=== PATIENT | female | born 1935 | race Caucasian/White ===

== ENCOUNTER 2016-04-04 20:29 | Inpatient (IN) | payer OTHER ==
[~2016-04-04] VITALS: Ht 165.1 cm; Wt 55.9 kg
[~2016-04-04 20:29] MED LIST: ADVAIR 250-501 EACH IH; ADVAIR 250/501 DISK IH; ALPRAZOLAM0.25 M1 PO; ANALGESIC325 MG PO; AZITHROMYCIN250 MG1 PO; Advair HFA 115/21 IH; Betapace,Sorine PO; CARDIZEM90 M1 G-TUBE; CARDIZEM90 M1 PO; CARDIZEM90 MG PO; Ceftin PO; ENDOCET 5-3251 EACH PO; FLECAINIDE ACE100 M1 PO; HABITROL,NICODER7 MG TD; HALCION0.25 MG PO; Humibid LA,Mucinex PO; KEFLEX500 MG PO; LEVOTHYROXINE100 MCG PO; LEVOXYL100 MCG PO; LIPITOR40 MG PO; LISINOPRIL10 MG PO; LITE COAT ASPI325 M1 PO; LORTAB 10-3251 EACH PO; Lasix PO; Levaquin PO; Levothroid,Synthroid PO; Lipitor PO; NITROSTAT,NITR0.4 M1 SL; Nitrostat,NitroQuick SL; PERCOCET 5/31 TABLET PO; PLAVIX75 MG PO; PREDNISONE20 MG PO; PREDNISONE50 MG PO; PREMARIN0.3 MG PO; PROVENTIL,2.5 MG/0.5 IH; Plavix PO; Proventil,Ventolin H IH; SOTALOL80 MG PO; TIZANIDINE HCL4 MG PO; VENTOLIN HFA18 GM IH; Vibramycin, Doryx PO; Vitamin D PO; XANAX0.5 MG PO; Xanax PO; ZESTRIL,PRINIVI10 M1 PO; Zestril,Prinivil PO; Zocor PO; predniSONE PO
[2016-04-04 21:18] LABS: CHLORIDE 105 mEq/L (99-109); POTASSIUM 4.5 mEq/L (3.7-5.4); SODIUM 137 mEq/L (136-147)
[2016-04-04 21:21] LABS: GLUCOSE 103 mg/dL (70-99)
[2016-04-04 21:22] LABS: ANION GAP 9 MEQ/L (2-14); INTER. NORMALIZED RATIO 1.1; PROTHROMBIN TIME 11.2 (9.2-11.2); PTT 34.5 (25-32); TOTAL BILIRUBIN 0.7 mg/dL (0.0-1.0)
[2016-04-04 21:24] LABS: ALKALINE PHOSPHATASE 70 IU/L (3-129); GFR ESTIMATE (CALCULATED) > 59 mL/min/
[2016-04-04 21:25] LABS: UREA NITROGEN (BUN) 22 mg/dL (9-23)
[2016-04-04 21:31] LABS: TROP-I INTERPRETATION NEGATIVE; TROPONIN-I < 0.01 ng/mL (0.0-0.30)
[2016-04-04 21:44] LABS: HEMATOCRIT 41.6 % (36.0-46.0); MCH 29.3 PG (29.0-34.0); MCHC 32.5 G/DL (30.0-36.0); MCV 90.2 FL (83-99); MEAN PLAT.VOLUME 10.4 uM^3 (9.5-12.4); PLATELET COUNT 242 K/uL (156-360); RBC DIS.WIDTH-CV 13.7 % (11.8-14.6); RBC DIS.WIDTH-SD 44.2 % (39-53); RED BLOOD COUNT 4.61 M/uL (3.80-5.20); WHITE BLOOD COUNT 12.7 K/uL (4.1-10.2)
[2016-04-04 21:47] LABS: BASOPHIL COUNT 0.1 K/uL (0-0.1); EOSINOPHIL (%) 2.4 % (0-5); EOSINOPHIL COUNT 0.3 K/uL (0-0.3); IMMATURE GRANULOCYTE (%) 0.3 % (0.0-0.7); IMMATURE GRANULOCYTE COUNT 0.4 K/uL; LYMPHOCYTE COUNT 2.4 K/uL (1.0-2.8); MONOCYTE (%) 12.9 % (3-12); MONOCYTE COUNT 1.6 K/uL (0-0.8); NEUTROPHIL (%) 64.8 % (45-76); NEUTROPHIL COUNT 8.2 K/uL (1.8-6.4)
[2016-04-04] MEDS ORDERED: CYANOCOBALAM1000 MCG PO (21:52)
[2016-04-04] MEDS ORDERED: VITAMIN D31000 UNIT PO (21:52)
[2016-04-04] MEDS ORDERED: FOLIC ACID1 MG PO (21:52)
[2016-04-04] MEDS ORDERED: VENLAFAXINE H37.5 M3 PO (21:52)
[2016-04-05] VITALS (8 sets, daily range): BP systolic 97–148; BP diastolic 58–70
[2016-04-05 01:25] LABS: ADD MIUA? YES; BILIRUBIN NEGATIVE; BLOOD TRACE; COLOR YELLOW ((YELLOW)); GLUCOSE (STRIP) NEGATIVE; KETONES NEGATIVE; LEUKOCYTES NEGATIVE; NITRITE NEGATIVE; PH, URINE 5.5 (5-8); PROTEIN (STRIP) NEGATIVE; SPECIFIC GRAVITY 1.013 (1.000-1.030); UROBILINOGEN 0.2 MG/DL (0.2-1.0)
[2016-04-05 01:36] LABS: PREALBUMIN 7.6 mg/dL (10-40)
[2016-04-05 01:59] LABS: EPITHELIAL CELLS RARE; MUCUS NONE SEEN; RED BLOOD CELLS 0-5 /HPF (0-5); WHITE BLOOD CELLS NONE SEEN /HPF (0-5)
[2016-04-05 02:00] LABS: BACTERIA RARE; CASTS NONE SEEN /LPF; CRYSTALS NONE SEEN; UCUL ADDED? NO
[2016-04-05 04:52] LABS: EOSINOPHIL (%) 0.2 % (0-5); HEMATOCRIT 40.9 % (36.0-46.0); IMMATURE GRANULOCYTE (%) 0.2 % (0.0-0.7); IMMATURE GRANULOCYTE COUNT 0.2 K/uL; LYMPHOCYTE COUNT 0.7 K/uL (1.0-2.8); MCH 29.4 PG (29.0-34.0); MCHC 32.8 G/DL (30.0-36.0); MCV 89.7 FL (83-99); MEAN PLAT.VOLUME 10.3 uM^3 (9.5-12.4); MONOCYTE (%) 2.9 % (3-12); MONOCYTE COUNT 0.3 K/uL (0-0.8); NEUTROPHIL (%) 89.4 % (45-76); NEUTROPHIL COUNT 8.4 K/uL (1.8-6.4); PLATELET COUNT 228 K/uL (156-360); RBC DIS.WIDTH-CV 13.5 % (11.8-14.6); RBC DIS.WIDTH-SD 43.4 % (39-53); RED BLOOD COUNT 4.56 M/uL (3.80-5.20); WHITE BLOOD COUNT 9.4 K/uL (4.1-10.2)
[2016-04-05 04:55] LABS: CHLORIDE 107 mEq/L (99-109); SODIUM 139 mEq/L (136-147)
[2016-04-05 04:56] LABS: GLUCOSE 138 mg/dL (70-99)
[2016-04-05 04:58] LABS: ANION GAP 10 MEQ/L (2-14)
[2016-04-05 04:59] LABS: INTER. NORMALIZED RATIO 1.1; PROTHROMBIN TIME 11.2 (9.2-11.2)
[2016-04-05 05:00] LABS: GFR ESTIMATE (CALCULATED) > 59 mL/min/
[2016-04-05 05:01] LABS: UREA NITROGEN (BUN) 20 mg/dL (9-23)
[2016-04-05 05:03] LABS: PTT 73.7 (25-32)
[2016-04-05 05:04] LABS: TROP-I INTERPRETATION NEGATIVE; TROPONIN-I 0.24 ng/mL (0.0-0.30)
[2016-04-05 10:36] LABS: TROP-I INTERPRETATION NEGATIVE; TROPONIN-I 0.12 ng/mL (0.0-0.30)
[2016-04-06 04:20] VITALS: BP 106/66
[2016-04-06 07:02] VITALS: BP 125/59
[2016-04-06] MEDS ORDERED: DOXYCYCLINE HY100 M3 PO (10:54)
[2016-04-06 11:43] VITALS: BP 148/69
[2016-04-06] MEDS ORDERED: CARDIZEM CD,CA120 MG PO (12:02)
== END 2016-04-06 13:27 | disposition home health service (06) | DRG 308 ==
LOC: EME 20:29 → EDOF 23:00 → 4EAST 23:00
PROVIDERS: Emergency Medicine; Internal Medicine
DX: I48.91 Unspecified atrial fibrillation (principal); J44.0 Chronic obstructive pulmonary disease with (acute) lower respiratory infection; J18.9 Pneumonia, unspecified organism; J44.1 Chronic obstructive pulmonary disease with (acute) exacerbation; I95.9 Hypotension, unspecified; R63.4 Abnormal weight loss; E86.0 Dehydration; I25.10 Atherosclerotic heart disease of native coronary artery without angina pectoris; Z95.5 Presence of coronary angioplasty implant and graft; I49.5 Sick sinus syndrome; Z95.0 Presence of cardiac pacemaker; F43.21 Adjustment disorder with depressed mood; F41.9 Anxiety disorder, unspecified; I12.9 Hypertensive chronic kidney disease with stage 1 through stage 4 chronic kidney disease, or unspecified chronic kidney disease; N18.9 Chronic kidney disease, unspecified; E78.5 Hyperlipidemia, unspecified; E03.9 Hypothyroidism, unspecified; M48.06 Spinal stenosis, lumbar region; G95.19 Other vascular myelopathies; F17.210 Nicotine dependence, cigarettes, uncomplicated; Z71.6 Tobacco abuse counseling; Z98.890 Other specified postprocedural states; Z79.02 Long term (current) use of antithrombotics/antiplatelets; Z79.82 Long term (current) use of aspirin
CPT/HCPCS: 71010; 80048; 80053; 81003; 82272; 84134; 84439; 84443; 84484; 85025; 85027; 85610; 85730; 93005; 93306; 94640; 94640 76; 94760; 94799; 99202; 99281; 99285; J0153; J0456; J0696; J1160; J2920; J7030; J7050

== ENCOUNTER 2016-12-26 09:33 | Day surgery (SDC) | payer OTHER ==
[~2016-12-26] VITALS: Ht 165.1 cm; Wt 53.5 kg
[~2016-12-26 09:33] MED LIST changes: +CARDIZEM CD,CA120 MG PO; +CYANOCOBALAM1000 MCG PO; +DOXYCYCLINE HY100 M3 PO; +FOLIC ACID1 MG PO; +VENLAFAXINE H37.5 M3 PO; +VITAMIN D31000 UNIT PO
== END 2016-12-26 11:05 | disposition home or self-care (01) ==
LOC: PAIN 09:33 → SDC 10:00 → PAIN 11:05
DX: M47.26 Other spondylosis with radiculopathy, lumbar region (principal); M48.061 Spinal stenosis, lumbar region without neurogenic claudication; M51.16 Intervertebral disc disorders with radiculopathy, lumbar region; F17.200 Nicotine dependence, unspecified, uncomplicated; F41.9 Anxiety disorder, unspecified; I71.4 Abdominal aortic aneurysm, without rupture; I35.8 Other nonrheumatic aortic valve disorders; I48.91 Unspecified atrial fibrillation; J44.9 Chronic obstructive pulmonary disease, unspecified; I25.10 Atherosclerotic heart disease of native coronary artery without angina pectoris; E53.8 Deficiency of other specified B group vitamins; E06.3 Autoimmune thyroiditis; E78.5 Hyperlipidemia, unspecified; I10 Essential (primary) hypertension; J45.20 Mild intermittent asthma, uncomplicated; R73.03 Prediabetes; I49.5 Sick sinus syndrome; E55.9 Vitamin D deficiency, unspecified; Z79.82 Long term (current) use of aspirin; Z95.0 Presence of cardiac pacemaker; Z95.5 Presence of coronary angioplasty implant and graft; Z88.0 Allergy status to penicillin; Z88.1 Allergy status to other antibiotic agents; Z88.8 Allergy status to other drugs, medicaments and biological substances
CPT/HCPCS: J1030; J3010; S0020

== ENCOUNTER 2017-01-09 09:34 | Day surgery (SDC) | payer OTHER ==
[~2017-01-09] VITALS: Ht 165.1 cm; Wt 53.5 kg
== END 2017-01-09 11:38 | disposition home or self-care (01) ==
LOC: PAIN 09:34 → SDC 10:15 → PAIN 11:38
DX: M47.26 Other spondylosis with radiculopathy, lumbar region (principal); M51.16 Intervertebral disc disorders with radiculopathy, lumbar region; M54.5 Low back pain; M70.61 Trochanteric bursitis, right hip; M48.061 Spinal stenosis, lumbar region without neurogenic claudication; I25.10 Atherosclerotic heart disease of native coronary artery without angina pectoris; I10 Essential (primary) hypertension; E03.9 Hypothyroidism, unspecified; I48.91 Unspecified atrial fibrillation; I49.5 Sick sinus syndrome; J44.9 Chronic obstructive pulmonary disease, unspecified; R73.03 Prediabetes; F41.9 Anxiety disorder, unspecified; Z95.0 Presence of cardiac pacemaker; Z95.5 Presence of coronary angioplasty implant and graft; Z79.02 Long term (current) use of antithrombotics/antiplatelets; Z88.0 Allergy status to penicillin; Z79.82 Long term (current) use of aspirin; Z79.891 Long term (current) use of opiate analgesic; F17.200 Nicotine dependence, unspecified, uncomplicated
CPT/HCPCS: J1030; J3010; S0020

== ENCOUNTER → 2017-03-03 | Outpatient (CLI) | payer OTHER | LOC: RAD 13:26 | DX: R13.12 Dysphagia, oropharyngeal phase (principal); S02.609D Fracture of mandible, unspecified, subsequent encounter for fracture with routine healing | CPT/HCPCS: 74230; 92611 GN; G8996 GN CJ; G8997 GN CJ; G8998 GN CJ ==

== ENCOUNTER 2017-04-14 08:29 | Observation (INO) | payer OTHER ==
[~2017-04-14] VITALS: Ht 165.1 cm; Wt 51.1 kg
[~2017-04-14 08:29] MED LIST changes: +ASPIR-LOW81 MG PO; -LEVOTHYROXINE100 MCG PO; +LEVOTHYROXINE150 MCG PO; -LITE COAT ASPI325 M1 PO; -VENLAFAXINE H37.5 M3 PO; +VENLAFAXINE HCL75 MG PO; +XANAX0.25 MG PO; -XANAX0.5 MG PO
[2017-04-14 09:38] LABS: BASOPHIL (%) 0.7 % (0-1); BASOPHIL COUNT 0.1 K/uL (0-0.1); EOSINOPHIL (%) 6.3 % (0-5); EOSINOPHIL COUNT 0.6 K/uL (0-0.3); HEMATOCRIT 42.4 % (36.0-46.0); HEMOGLOBIN 13.4 G/DL (11.9-15.5); IMMATURE GRANULOCYTE (%) 0.3 % (0.0-0.7); LYMPHOCYTE (%) 16.8 % (15-42); LYMPHOCYTE COUNT 1.6 K/uL (1.0-2.8); MCH 28.5 PG (29.0-34.0); MCHC 31.6 G/DL (30.0-36.0); MONOCYTE (%) 7.8 % (3-12); MONOCYTE COUNT 0.8 K/uL (0-0.8); NEUTROPHIL (%) 68.1 % (45-76); NEUTROPHIL COUNT 6.5 K/uL (1.8-6.4); PLATELET COUNT 244 K/uL (156-360); RBC DIS.WIDTH-CV 13.8 % (11.8-14.6); RBC DIS.WIDTH-SD 45.6 % (39-53); RED BLOOD COUNT 4.71 M/uL (3.80-5.20); WHITE BLOOD COUNT 9.6 K/uL (4.1-10.2)
[2017-04-14 09:48] LABS: ALBUMIN 3.4 g/dL (3.2-4.8); CHLORIDE 104 mEq/L (99-109); POTASSIUM 3.8 mEq/L (3.7-5.4); SODIUM 141 mEq/L (136-147)
[2017-04-14 09:51] LABS: GLUCOSE 96 mg/dL (70-99); TOTAL PROTEIN 5.9 g/dL (6.4-8.3)
[2017-04-14 09:53] LABS: TOTAL BILIRUBIN 0.4 mg/dL (0.0-1.0)
[2017-04-14 09:54] LABS: ALKALINE PHOSPHATASE 86 IU/L (3-129); CREATININE 0.8 mg/dL (0.6-1.3); GFR ESTIMATE (CALCULATED) > 59 mL/min/
[2017-04-14 09:55] LABS: UREA NITROGEN (BUN) 16 mg/dL (9-23)
[2017-04-14 09:56] LABS: AST (GOT) 24 IU/L (2-34)
[2017-04-14 09:57] LABS: ALT (GPT) 13 IU/L (3-49)
[2017-04-14 09:59] LABS: TROP-I INTERPRETATION NEGATIVE; TROPONIN-I < 0.01 ng/mL (0.0-0.30)
[2017-04-14] MEDS ORDERED: MILK OF MAGN PO (15:36)
[2017-04-14] MEDS ORDERED: ARTIFICIAL TEAR15 M1 BOTH EYES (15:40)
[2017-04-14] MEDS ORDERED: BACLOFEN10 MG PO (15:41)
[2017-04-14] MEDS ORDERED: HYDRALAZINE HCL10 MG PO (15:47)
[2017-04-14] MEDS ORDERED: TAMIFLU30 MG PO (15:50)
[2017-04-14] MEDS ORDERED: ERGOCALCIF50000 UNIT PO (15:52)
[2017-04-14] MEDS ORDERED: XANAX0.5 MG PO (15:54)
[2017-04-14] MEDS ORDERED: RANITIDINE HCL300 MG PO (15:54)
[2017-04-14] MEDS ORDERED: OXYCODONE HCL5 MG PO (15:55)
[2017-04-14] MEDS ORDERED: ACETAMINOPHEN325 M1 PO (15:57)
[2017-04-14] MEDS ORDERED: NITROSTAT0.4 MG SL (15:58)
[2017-04-14] MEDS ORDERED: DULCOLAX10 MG PR (15:58)
[2017-04-14 17:38] LABS: TROP-I INTERPRETATION NEGATIVE; TROPONIN-I 0.02 ng/mL (0.0-0.30)
[2017-04-14 19:41] VITALS: BP 152/82
[2017-04-14 23:00] VITALS: BP 162/82
[2017-04-15 00:49] LABS: TROP-I INTERPRETATION NEGATIVE; TROPONIN-I 0.02 ng/mL (0.0-0.30)
[2017-04-15 07:47] VITALS: BP 185/84
[2017-04-15 12:12] VITALS: BP 169/81
[2017-04-15 16:15] VITALS: BP 145/64
[2017-04-15 20:00] VITALS: BP 144/74
[2017-04-16 01:35] VITALS: BP 117/60
[2017-04-16 09:20] VITALS: BP 142/78
== END 2017-04-16 10:18 ==
LOC: EDBD 08:29 → EME 08:29 → 5WEST 12:15 → EDOF 12:15 → ENRESERV 12:34 → 2SOUTH 12:53 → EDOF 13:00 → ENRESERV 15:21 → 5WEST 19:08
PROVIDERS: Emergency Medicine; Family Medicine
DX: R07.9 Chest pain, unspecified (principal); I25.10 Atherosclerotic heart disease of native coronary artery without angina pectoris; F32.9 Major depressive disorder, single episode, unspecified; F41.9 Anxiety disorder, unspecified; I48.0 Paroxysmal atrial fibrillation; I49.5 Sick sinus syndrome; Z95.0 Presence of cardiac pacemaker; Z95.5 Presence of coronary angioplasty implant and graft; J44.9 Chronic obstructive pulmonary disease, unspecified; F17.200 Nicotine dependence, unspecified, uncomplicated; E78.5 Hyperlipidemia, unspecified; Z98.890 Other specified postprocedural states; I71.4 Abdominal aortic aneurysm, without rupture; M48.062 Spinal stenosis, lumbar region with neurogenic claudication; I12.9 Hypertensive chronic kidney disease with stage 1 through stage 4 chronic kidney disease, or unspecified chronic kidney disease; N18.9 Chronic kidney disease, unspecified; E03.9 Hypothyroidism, unspecified; G89.4 Chronic pain syndrome; Z79.82 Long term (current) use of aspirin; Z79.02 Long term (current) use of antithrombotics/antiplatelets; Z82.49 Family history of ischemic heart disease and other diseases of the circulatory system; Z88.0 Allergy status to penicillin; Z88.1 Allergy status to other antibiotic agents; Z88.8 Allergy status to other drugs, medicaments and biological substances; Z90.710 Acquired absence of both cervix and uterus
CPT/HCPCS: 71046; 80053; 81003; 83880; 84484; 85025; 93005; 94799; 99281; 99285; G0378

== ENCOUNTER 2017-11-18 08:41 | Day surgery (SDC) | payer OTHER ==
[~2017-11-18] VITALS: Ht 165.1 cm; Wt 52.2 kg
[~2017-11-18 08:41] MED LIST changes: +ACETAMINOPHEN325 M1 PO; +ARTIFICIAL TEAR15 M1 BOTH EYES; +BACLOFEN10 MG PO; +DULCOLAX10 MG PR; +ERGOCALCIF50000 UNIT PO; +HYDRALAZINE HCL10 MG PO; +HYDROCODON-ACE1 EAC9 PO; +MILK OF MAGN PO; +NITROSTAT0.4 MG SL; +OXYCODONE HCL5 MG PO; +RANITIDINE HCL300 MG PO; +TAMIFLU30 MG PO; +VITAMIN D2000 UNIT PO; +XANAX0.5 MG PO
== END 2017-11-18 10:00 | disposition home or self-care (01) ==
LOC: PAIN 08:41 → SDC 11:15 → PAIN 11:15
DX: M16.11 Unilateral primary osteoarthritis, right hip (principal); M25.551 Pain in right hip; I48.91 Unspecified atrial fibrillation; J44.9 Chronic obstructive pulmonary disease, unspecified; Z95.0 Presence of cardiac pacemaker; E03.9 Hypothyroidism, unspecified; I25.10 Atherosclerotic heart disease of native coronary artery without angina pectoris; Z95.5 Presence of coronary angioplasty implant and graft; F17.200 Nicotine dependence, unspecified, uncomplicated; Z79.02 Long term (current) use of antithrombotics/antiplatelets
CPT/HCPCS: J1030; J2250; J3010; S0020